=== PATIENT | male | born 1935 | race Caucasian/White ===

== ENCOUNTER 2016-09-19 19:52 | Inpatient (IN) ==
[2016-09-19] MEDS ORDERED: *HR* HYDROcodone/Acet 5/325 mg TABLET PO PRN ×2 (21:24)
[2016-09-19] MEDS ORDERED: Acetaminophen 325 MG TABLET PO PRN (21:24)
[2016-09-19] MEDS: LevETIRAcetam 250 MG TABLET PO SCH (23:30)
[2016-09-20] MEDS: *HR* Enoxaparin 40 MG/0.4 ML SYRINGE SQ SCH (05:50)
[2016-09-20 05:53] LABS: Basophils # 0.1 K/mcL (0.0-0.2); Basophils % 0.6 %; Eosinophils # 0.4 K/mcL (0.0-0.6); Eosinophils % 4.1 %; Hematocrit 30.7 % (37.5-50.1); Hemoglobin 10.5 g/dL (12.9-16.9); Immature Granulocytes % 0.4 % (0-4); Lymphocytes % 23.9 %; Mean Corpuscular HGB Conc 34.2 g/dL (31.6-35.5); Mean Corpuscular Hemoglobin 30.3 pg (28.0-33.3); Mean Corpuscular Volume 88.7 fL (83.0-100.0); Mean Platelet Volume 10.3 fL (9.4-12.4); Monocytes # 0.8 K/mcL (0.0-1.3); Monocytes % 9.6 %; Neutrophils # 5.2 K/mcL (1.6-8.9); Platelet Count 309 K/mcL (140-400); Red Blood Count 3.46 M/mcL (4.19-5.50); Red Cell Distribution Width 13.6 % (11.5-14.5); Segmented Neutrophils % 61.4 %
[2016-09-20 05:54] LABS: INR 1.2; Prothrombin Time 12.7 Seconds (9.4-12.1)
[2016-09-20 05:57] LABS: Activated Partial Thrombo Time 26.5 Seconds (26.0-36.0)
[2016-09-20 06:05] LABS: BUN/Creatinine Ratio 16 (6-26); Blood Urea Nitrogen 21 mg/dL (8-26); Calcium 8.5 mg/dL (8.6-10.8); Carbon Dioxide 22 mEq/L (19-29); Chloride 108 mEq/L (98-109); Glucose 95 mg/dL (70-99); Osmolality,Calculated 293 (280-300); Potassium 4.3 mEq/L (3.5-4.5); Sodium 140 mEq/L (136-145); eGFR For African Americans > 60 (> 60); eGFR For Non-African Americans 54 (> 60)
[2016-09-20] MEDS: *HR* Glimepiride 4 MG TABLET PO SCH (08:08)
[2016-09-20] MEDS: LevETIRAcetam 250 MG TABLET PO SCH ×2 (08:09→19:58)
[2016-09-20] MEDS: Aspirin 81 MG TAB.CHEW PO SCH (08:09)
--- NOTE | 2016-09-20 13:13 | Internal Med History&Physical ---
Date of Encounter: 09/20/16 Time of Encounter: 13:11 Assessment and Plan (1) CVA (cerebrovascular accident) Current visit: Yes Status: Acute Status post left temporal intracerebral hemorrhage. Most of deficits are speech Qualifiers: CVA mechanism: thrombosis Precerebral and cerebral artery: cerebellar artery Laterality of affected vessel: unspecified Qualified Code(s): I63.349 - Cerebral infarction due to thrombosis of unspecified cerebellar artery Internal Medicine - H&P: HPI Admitted From: Intrahospital Transfer Plans for Post Hospital Care: Home History of present illness: Mr. Lawton is a 81 year old male admitted to this facility status post acute subdural left temporal hemorrhage. Patient initially presented with a headache , nausea vomiting and right facial droop for 2 days. He was incoherent. On today's examination he has no specific complaint. Past Med Surg Social Fam HX - Past Medical History Medical history: arthritis, atrial fibrillation, cancer, CHF, CVA, diabetes, hypertension, other Psychiatric history: no psych history - Past Surgical History Surgical History: cholecystectomy, knee replacement, orthopedic, other, prostatectomy, other - Social History Smoking Status: Never smoker Smokeless Tobacco Status: No Alcohol use: none Drug use: none - Family History Mother History Unknown: Yes Father History Unknown: Yes Internal Medicine - H&P: Meds Allopurinol [Zyloprim] 100 mg PO QAM 06/06/15 [History] Aspirin 81 mg PO QAM 06/06/15 [History] Amlodipine [Norvasc] 10 mg PO QAM #90 tablet 06/09/15 [Rx] Tamsulosin [Flomax] 0.4 mg PO DAILY #30 capsule 06/09/15 [Rx] Acetaminophen [Tylenol] 650 mg PO Q6HR PRN 09/19/16 [History] Atorvastatin [Lipitor] 40 mg PO HS 09/19/16 [History] Docusate [Colace] 100 mg PO BID 09/19/16 [History] Enoxaparin [Lovenox] 40 mg SQ DAILY 09/19/16 [History] Glimepiride [Amaryl] 4 mg PO DAILY 09/19/16 [History] HYDROcodone/Acet 5/325 mg [[place] 5-325 mg] 1 tab PO Q4H PRN 09/19/16 [History] HYDROcodone/Acet 5/325 mg [[place] 5-325 mg] 2 tab PO Q4H PRN 09/19/16 [History] LevETIRAcetam [Keppra] 500 mg PO BID 09/19/16 [History] Metoprolol [Lopressor] 25 mg PO BID 09/19/16 [History] Allergies Sulfa (Sulfonamide Antibiotics) Allergy (Verified 06/06/15 17:31) Rash morphine Adverse Reaction (Verified 06/06/15 17:31) Vomiting All Systems PM: A 10-system review of systems was performed and is negative for pertinent findings except as documented above in the HPI. - Cardiovascular Cardiovascular ROS IM: no chest pain, no diaphoresis, no dyspnea, no lightheadedness, no palpitations, no syncope - Respiratory Respiratory: no cough, no dyspnea, no wheezing, no excessive phlegm production - Gastrointestinal Gastrointestinal: no abdominal pain, no diarrhea, no hematemesis, no hematochezia, no melena, no nausea, no vomiting - Musculoskeletal Musculoskeletal ROS IM: no numbness, no tingling - Neurological Neurological ROS: no confusion, no convulsions, no focal weakness, no numbness, no tingling, no tremor(s) - Constitutional Vitals: Temp Pulse Resp BP Pulse Ox 97.4 F L 100 18 136/79 97 09/20/16 06:43 09/20/16 06:43 09/20/16 06:43 09/20/16 06:43 09/20/16 06:43 General appearance: Present: A&O X 3, pleasant - Respiratory Respiratory exam: Present: CTAB. Absent: accessory muscle use, rales, rhonchi, wheezes - Cardiovascular Cardiovascular exam: Present: RRR, +S1, +S2. Absent: diastolic murmur, gallop, rubs, systolic murmur - GI/Abdominal GI/Abdominal exam: Present: normal bowel sounds, soft, no peritoneal signs. Absent: distended, tenderness - Extremities Exam Extremities exam: Present: warm, radial pulses palpable and symetrical. Absent : calf tenderness, cyanotic, pedal edema - Expanded Neurological Exam Speech: Present: anomia (Speech pattern appears to be word salad) Internal Med - H&P Results - Labs CBC & Chem 7: 09/20/16 04:45 09/20/16 04:45 Labs: Short CBC 09/20/16 Range/Units 04:45 WBC 8.5 (4.3-11.1) K/mcL Hgb 10.5 L (12.9-16.9) g/dL Hct 30.7 L (37.5-50.1) % Plt Count 309 (140-400) K/mcL Neutrophils # 5.2 (1.6-8.9) K/mcL BMP 09/20/16 04:45 Sodium 140 Potassium 4.3 Chloride 108 Carbon Dioxide 22 BUN 21 Creatinine 1.28 H Glucose 95 Calcium 8.5 L
[2016-09-21] MEDS: *HR* Enoxaparin 40 MG/0.4 ML SYRINGE SQ SCH (05:43)
[2016-09-21] MEDS: Aspirin 81 MG TAB.CHEW PO SCH (09:15)
[2016-09-21] MEDS: *HR* Glimepiride 4 MG TABLET PO SCH (09:15)
[2016-09-21] MEDS: LevETIRAcetam 250 MG TABLET PO SCH ×2 (09:15→20:57)
--- NOTE | 2016-09-21 10:29 | Internal Med Progress Note ---
Date of Encounter: 09/21/16 Time of Encounter: 10:28 - Assessment and plan (1) CVA (cerebrovascular accident) Current Visit: Yes Status: Acute Assessment and plan: More Calmer[place] today. 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 Seems calm her today. Cooperative. Pleasant but still rambles on with word salad. Still confused. - Constitutional Vitals: Temp Pulse Resp BP Pulse Ox 97.3 F L 76 18 142/75 95 09/21/16 07:25 09/21/16 07:25 09/21/16 07:25 09/21/16 07:25 09/21/16 07:25 General appearance: Present: pleasant - Respiratory Respiratory exam: Present: CTAB. Absent: accessory muscle use, rales, rhonchi, wheezes - Cardiovascular Cardiovascular exam: Present: RRR, +S1, +S2. Absent: diastolic murmur, gallop, rubs, systolic murmur - GI/Abdominal GI/Abdominal exam: Present: normal bowel sounds, soft, no peritoneal signs. Absent: distended, tenderness - Extremities Exam Extremities exam: Present: warm, radial pulses palpable and symetrical. Absent : calf tenderness, cyanotic, pedal edema Internal Medicine: Result - Labs CBC & Chem 7: 09/20/16 04:45 09/20/16 04:45 - ABG Interpretation ABG results: PT/INR, D-dimer PT 12.7 Seconds (9.4-12.1) H 09/20/16 04:45 Consult Discharge Plan - Plan Referrals: Kelvin Savage MD [Primary Care Provider] -
[2016-09-22] MEDS: *HR* Enoxaparin 40 MG/0.4 ML SYRINGE SQ SCH (06:11)
[2016-09-22 06:20] LABS: Basophils # 0.1 K/mcL (0.0-0.2); Basophils % 0.6 %; Eosinophils # 0.3 K/mcL (0.0-0.6); Eosinophils % 2.7 %; Hematocrit 32.3 % (37.5-50.1); Hemoglobin 11.1 g/dL (12.9-16.9); Immature Granulocytes % 0.3 % (0-4); Lymphocytes # 2.3 K/mcL (0.6-4.6); Mean Corpuscular HGB Conc 34.4 g/dL (31.6-35.5); Mean Corpuscular Hemoglobin 29.8 pg (28.0-33.3); Mean Corpuscular Volume 86.8 fL (83.0-100.0); Monocytes % 10.8 %; Neutrophils # 5.9 K/mcL (1.6-8.9); Platelet Count 343 K/mcL (140-400); Red Blood Count 3.72 M/mcL (4.19-5.50); Red Cell Distribution Width 13.4 % (11.5-14.5); Segmented Neutrophils % 61.6 %
[2016-09-22 06:29] LABS: BUN/Creatinine Ratio 15 (6-26); Blood Urea Nitrogen 19 mg/dL (8-26); Calcium 8.7 mg/dL (8.6-10.8); Carbon Dioxide 21 mEq/L (19-29); Chloride 107 mEq/L (98-109); Glucose 94 mg/dL (70-99); Osmolality,Calculated 288 (280-300); Potassium 4.3 mEq/L (3.5-4.5); Sodium 138 mEq/L (136-145); eGFR For African Americans > 60 (> 60); eGFR For Non-African Americans 53 (> 60)
[2016-09-22] MEDS: LevETIRAcetam 250 MG TABLET PO SCH ×2 (09:04→19:48)
[2016-09-22] MEDS: *HR* Glimepiride 4 MG TABLET PO SCH (09:04)
[2016-09-22] MEDS: Aspirin 81 MG TAB.CHEW PO SCH (09:04)
--- NOTE | 2016-09-22 13:53 | Internal Med Progress Note ---
Date of Encounter: 09/25/16 Time of Encounter: 13:51 - Assessment and plan (1) CVA (cerebrovascular accident due to intracerebral hemorrhage) Current Visit: Yes Status: Acute Assessment and plan: Patient is being monitored. As I said physically doing well cognitively is a different story Qualifiers: Intracerebral hemorrhage etiology: traumatic Encounter type: subsequent encounter Laterality: left Loss of consciousness presence/duration: with LOC of unspecified duration Qualified Code(s): S06.359D - Traumatic hemorrhage of left cerebrum with loss of consciousness of unspecified duration, subsequent encounter (2) Accelerated essential hypertension Current Visit: No Status: Acute Assessment and plan: Will follow blood pressure (3) Acute renal failure Current Visit: No Status: Acute Assessment and plan: Will follow renal function also renal function looks good on lab. Qualifiers: Acute renal failure type: unspecified Qualified Code(s): N17.9 - Acute kidney failure, unspecified - Time Spent With Patient less than 15 minutes - Subjective Interval history: Physically patient showing improvement from concerned little bit about cognitive side. A vascular cyanosis due to talk to him and let me know what she thinks in terms of his memory and cognitive abilities - Constitutional Vitals: Temp Pulse Resp BP Pulse Ox 97.9 F 89 16 150/89 94 L 09/22/16 07:00 09/22/16 07:00 09/22/16 07:00 09/22/16 07:00 09/22/16 07:00 General appearance: Present: pleasant - Head Head exam: Present: normal inspection - Neck Neck exam general surgery: Present: supple, trachea midline. Absent: lymphadenopathy - Respiratory Respiratory exam: Present: CTAB. Absent: accessory muscle use, rales, rhonchi, wheezes - Cardiovascular Cardiovascular exam: Present: RRR, +S1, +S2. Absent: diastolic murmur, gallop, rubs, systolic murmur - GI/Abdominal GI/Abdominal exam: Present: normal bowel sounds, soft, no peritoneal signs. Absent: distended, tenderness Internal Medicine: Result - Labs CBC & Chem 7: 09/22/16 05:40 09/22/16 05:40 Labs: Short CBC 09/22/16 Range/Units 05:40 WBC 9.6 (4.3-11.1) K/mcL Hgb 11.1 L (12.9-16.9) g/dL Hct 32.3 L (37.5-50.1) % Plt Count 343 (140-400) K/mcL Neutrophils # 5.9 (1.6-8.9) K/mcL BMP 09/22/16 05:40 Sodium 138 Potassium 4.3 Chloride 107 Carbon Dioxide 21 BUN 19 Creatinine 1.31 H Glucose 94 Calcium 8.7 Lab looks good - ABG Interpretation ABG results: PT/INR, D-dimer PT 12.7 Seconds (9.4-12.1) H 09/20/16 04:45 Consult Discharge Plan - Plan Referrals: Kelvin Savage MD [Primary Care Provider] -
[2016-09-23] MEDS: *HR* Enoxaparin 40 MG/0.4 ML SYRINGE SQ SCH (05:17)
[2016-09-23] MEDS: Aspirin 81 MG TAB.CHEW PO SCH (10:10)
[2016-09-23] MEDS: *HR* Glimepiride 4 MG TABLET PO SCH (10:10)
[2016-09-23] MEDS: LevETIRAcetam 250 MG TABLET PO SCH ×2 (10:10→22:07)
--- NOTE | 2016-09-23 11:21 | Internal Med Progress Note ---
Date of Encounter: 09/23/16 Time of Encounter: 11:19 - Assessment and plan (1) CVA (cerebrovascular accident due to intracerebral hemorrhage) Current Visit: Yes Status: Acute Assessment and plan: I am not sure what his cognitive side was like prior to his CVA. Intracerebral hemorrhage. He appears to be stable but nonsensical and nonspecific in his speech Qualifiers: Intracerebral hemorrhage etiology: traumatic Encounter type: subsequent encounter Laterality: left Loss of consciousness presence/duration: with LOC of unspecified duration Qualified Code(s): S06.359D - Traumatic hemorrhage of left cerebrum with loss of consciousness of unspecified duration, subsequent encounter (2) Accelerated essential hypertension Current Visit: No Status: Acute Assessment and plan: Blood pressure is great (3) Acute renal failure Current Visit: No Status: Acute Assessment and plan: Renal function looks good Qualifiers: Acute renal failure type: unspecified Qualified Code(s): N17.9 - Acute kidney failure, unspecified - Time Spent With Patient less than 15 minutes - Subjective Interval history: Patient makes no sense in conversations. Is pleasant and denies any discomfort. - Constitutional Vitals: Temp Pulse Resp BP Pulse Ox 98.2 F 80 18 122/75 96 09/23/16 07:00 09/23/16 07:00 09/23/16 07:00 09/23/16 07:00 09/23/16 07:00 General appearance: Present: pleasant - Head Head exam: Present: atraumatic, normal inspection, normocephalic - Neck Neck exam general surgery: Present: supple, trachea midline. Absent: lymphadenopathy - Respiratory Respiratory exam: Present: CTAB. Absent: accessory muscle use, rales, rhonchi, wheezes - Cardiovascular Cardiovascular exam: Present: RRR, +S1, +S2. Absent: diastolic murmur, gallop, rubs, systolic murmur - GI/Abdominal GI/Abdominal exam: Present: normal bowel sounds, soft, no peritoneal signs. Absent: distended, tenderness Internal Medicine: Result - Labs CBC & Chem 7: 09/22/16 05:40 09/22/16 05:40 Labs: Lab looks good - ABG Interpretation ABG results: PT/INR, D-dimer PT 12.7 Seconds (9.4-12.1) H 09/20/16 04:45 Consult Discharge Plan - Plan Referrals: Kelvin Savage MD [Primary Care Provider] -
[2016-09-24] MEDS: *HR* Enoxaparin 40 MG/0.4 ML SYRINGE SQ SCH (03:40)
[2016-09-24] MEDS: LevETIRAcetam 250 MG TABLET PO SCH ×2 (09:04→21:09)
[2016-09-24] MEDS: Aspirin 81 MG TAB.CHEW PO SCH (09:04)
[2016-09-24] MEDS: *HR* Glimepiride 4 MG TABLET PO SCH (09:05)
--- NOTE | 2016-09-24 13:26 | Internal Med Progress Note ---
Date of Encounter: 09/24/16 Time of Encounter: 13:24 - Assessment and plan (1) CVA (cerebrovascular accident due to intracerebral hemorrhage) Current Visit: Yes Status: Acute Assessment and plan: Patient has significant dysphagia secondary to his CVA appears Qualifiers: Intracerebral hemorrhage etiology: traumatic Encounter type: subsequent encounter Laterality: left Loss of consciousness presence/duration: with LOC of unspecified duration Qualified Code(s): S06.359D - Traumatic hemorrhage of left cerebrum with loss of consciousness of unspecified duration, subsequent encounter (2) Accelerated essential hypertension Current Visit: No Status: Acute Assessment and plan: Patient's blood pressures well controlled (3) Acute renal failure Current Visit: No Status: Acute Assessment and plan: Acute renal failure stable Qualifiers: Acute renal failure type: unspecified Qualified Code(s): N17.9 - Acute kidney failure, unspecified - Time Spent With Patient less than 15 minutes - Subjective Interval history: Patient makes no sense in conversations. Is pleasant and denies any discomfort. Patient does have dysphasia. It is impossible to follow his conversation. As a great deal of trouble word finding - Constitutional Vitals: Temp Pulse Resp BP Pulse Ox 98.9 F 79 18 110/69 96 09/24/16 06:43 09/24/16 06:43 09/24/16 06:43 09/24/16 06:43 09/24/16 06:43 General appearance: Present: pleasant - Head Head exam: Present: atraumatic, normal inspection, normocephalic - Neck Neck exam general surgery: Present: supple, trachea midline. Absent: lymphadenopathy - Respiratory Respiratory exam: Present: CTAB. Absent: accessory muscle use, rales, rhonchi, wheezes - Cardiovascular Cardiovascular exam: Present: RRR, +S1, +S2. Absent: diastolic murmur, gallop, rubs, systolic murmur - GI/Abdominal GI/Abdominal exam: Present: normal bowel sounds, soft, no peritoneal signs. Absent: distended, tenderness Internal Medicine: Result - Labs CBC & Chem 7: 09/22/16 05:40 09/22/16 05:40 Labs: Lab looks okay k - ABG Interpretation ABG results: PT/INR, D-dimer PT 12.7 Seconds (9.4-12.1) H 09/20/16 04:45 Consult Discharge Plan - Plan Referrals: Kelvin Savage MD [Primary Care Provider] -
--- NOTE | 2016-09-24 14:00 | Psychological Evaluation ---
Date of Encounter: 09/24/16 Time of Encounter: 11:00 History of Present Illness History of present illness: Mr. Lawton is a 81 year old male who recently sustained a left temporal hemorrhage and was admitted to [facility] for inpatient rehab. He was seen on this date to assess his current cognitive and emotional functioning. Past Medical History Medical history: Significant for arthritis, atrial fibrillation, cancer, diabetes and HTN - Psychiatric History Additional Psychiatric History: No known history of psychiatric hospitalization or mental health counseling. In addition, there is no known family history of psychiatric or mental health issues. Home Medications and Allergies Allopurinol [Zyloprim] 100 mg PO QAM 06/06/15 [History] Aspirin 81 mg PO QAM 06/06/15 [History] Amlodipine [Norvasc] 10 mg PO QAM #90 tablet 06/09/15 [Rx] Tamsulosin [Flomax] 0.4 mg PO DAILY #30 capsule 06/09/15 [Rx] Acetaminophen [Tylenol] 650 mg PO Q6HR PRN 09/19/16 [History] Atorvastatin [Lipitor] 40 mg PO HS 09/19/16 [History] Docusate [Colace] 100 mg PO BID 09/19/16 [History] Enoxaparin [Lovenox] 40 mg SQ DAILY 09/19/16 [History] Glimepiride [Amaryl] 4 mg PO DAILY 09/19/16 [History] HYDROcodone/Acet 5/325 mg [[place] 5-325 mg] 1 tab PO Q4H PRN 09/19/16 [History] HYDROcodone/Acet 5/325 mg [[place] 5-325 mg] 2 tab PO Q4H PRN 09/19/16 [History] LevETIRAcetam [Keppra] 500 mg PO BID 09/19/16 [History] Metoprolol [Lopressor] 25 mg PO BID 09/19/16 [History] Allergies Sulfa (Sulfonamide Antibiotics) Allergy (Verified 06/06/15 17:31) Rash morphine Adverse Reaction (Verified 06/06/15 17:31) Vomiting Social History - Social History Social History: Mr. Lawton is and has two children. His expressive aphasia limited his ability to provide background information or his psychosocial history. He was able to indicate that he has a son and a daughter and photos in his hospital room also showed a grandson (who is a java mobile developer) and a granddaugher. Mr. Lawton is retired but was unable to specify what kind of work he had done and he was unable to explain previous daily routine or hobbies. 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 - Tobacco Use Smoking Status: Never smoker - Alcohol Use Alcohol Use: none Cognitive/Emotional Assessment - Cognitive Ability Additional Findings: Mr. Bejarano was alert, attentive and fully cooperative. He was able to state his full name and point to his correct age from 3 written choices but was unable identify the date/time or present location/place. Mr. Lawton was fairly verbose and did not appear aware that his speech was void of content. Speech was fluent and clear. He tended to answer questions in vague words and was often unable to answer questions with a concise or accurate response. He tended to perseverate on money, Luis A, hospital expenses, people stealing and being given medicines or undergoing medical procedures. He was unable to repeat words or phrases and he was unable to complete one-step commands even with gestures/ modeling of response. Overall, level of verbal comprehension is significantly impaired and Mr. Lawton did not appear aware of his language deficits. - Emotional Status Additional Findings: Mr. Lawton was pleasant and friendly. He did not exhibit signs of frustration, irritability, anxiety or sadness. In addition, he did not appear to be in any physical discomfort or pain. Assessment & Plan - Treatment Plan Treatment Plan/Recommendations: Will follow Mr. Lawton as needed while he is an inpatient on the unit. Will monitor his mood for signs of irritability, depression/anxiety and increased awareness. Procedures - Session Time Session Start Time: 11:00 Session Stop Time: 11:30
--- NOTE | 2016-09-24 15:48 | Physcial Medicine-Consult Note ---
Date of Encounter: 09/24/16 Time of Encounter: 15:41 Physical Medicine - AP (1) CVA (cerebrovascular accident due to intracerebral hemorrhage) Status: Acute Assessment and plan: 1. Mr. Lawton will continue with intensive PT/OT/ST/TR to continue to address ADLs, gait, safety, and speech. He is currently min A for bathing, requires CGA for lower body dressing. He is ambulating 100 feet with assistance. His global aphasia is his primary deficit at this time. We will continue with intensive speech therapy. 2. DVT prophylaxis: Continue lovenox 3. A-fib: continue beta fede and aspirin. Code(s): I61.9 - Nontraumatic intracerebral hemorrhage, unspecified SNOMED Code(s): 017729280 (2) Global aphasia Status: Acute Code(s): R47.02 - Dysphasia SNOMED Code(s): 94833085 Physical Medicine - HPI - Data of Consult Consult date: 09/24/16 Requesting Physician: Kali Ledesma DO Primary Care Provider: Kelvin Savage MD - Consult Narrative Reason for consult: CVA History of present illness: Mr. Lawton is a 81 year old male who was admitted for inpatient rehabilitation following a large left temporal lobe parenchymal hematoma. 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 The AVM was partially embolized. Patient developed atrial fibrillation during his acute stay. Patient was started on metoprolol and aspirin. He was stabilized and transferred for inpatient rehabilitation due to his residual deficits which include global aphasia. CC: Kali Ledesma DO Past Med Surg Social Fam HX - Past Medical History Medical history: arthritis, atrial fibrillation, cancer, CHF, CVA, diabetes, hypertension, other Psychiatric history: no psych history - Past Surgical History Surgical History: cholecystectomy, knee replacement, orthopedic, other, prostatectomy, other - Social History Smoking Status: Never smoker Smokeless Tobacco Status: No Alcohol use: none Drug use: none - Family History Mother History Unknown: Yes Father History Unknown: Yes Medications and Allergies Allopurinol [Zyloprim] 100 mg PO QAM 06/06/15 [History] Aspirin 81 mg PO QAM 06/06/15 [History] Amlodipine [Norvasc] 10 mg PO QAM #90 tablet 06/09/15 [Rx] Tamsulosin [Flomax] 0.4 mg PO DAILY #30 capsule 06/09/15 [Rx] Acetaminophen [Tylenol] 650 mg PO Q6HR PRN 09/19/16 [History] Atorvastatin [Lipitor] 40 mg PO HS 09/19/16 [History] Docusate [Colace] 100 mg PO BID 09/19/16 [History] Enoxaparin [Lovenox] 40 mg SQ DAILY 09/19/16 [History] Glimepiride [Amaryl] 4 mg PO DAILY 09/19/16 [History] HYDROcodone/Acet 5/325 mg [[place] 5-325 mg] 1 tab PO Q4H PRN 09/19/16 [History] HYDROcodone/Acet 5/325 mg [[place] 5-325 mg] 2 tab PO Q4H PRN 09/19/16 [History] LevETIRAcetam [Keppra] 500 mg PO BID 09/19/16 [History] Metoprolol [Lopressor] 25 mg PO BID 09/19/16 [History] Allergies Sulfa (Sulfonamide Antibiotics) Allergy (Verified 06/06/15 17:31) Rash morphine Adverse Reaction (Verified 06/06/15 17:31) Vomiting ROS unobtainable: due to mental status Physical Medicine - Exam - Constitutional Vitals: Temp Pulse Resp BP Pulse Ox 98.9 F 79 18 110/69 96 09/24/16 06:43 09/24/16 06:43 09/24/16 06:43 09/24/16 06:43 09/24/16 06:43 General appearance: no acute distress Exam: Patient is alert. Fluent speech. Able to respond accurately when asked his name. He is unable to name objects or people. Nonsensical responses to questions.Patient is pleasant, alert, seated in chair. - Head Head exam: Present: normal inspection, normocephalic Additional comments: No facial droop. Tongue is midline. EOMI grossly intact. Exam limited due to patient's global aphasia - Respiratory Respiratory exam: Present: CTAB - Cardiovascular Cardiovascular exam: Present: RRR - GI/Abdominal GI/Abdominal exam: Present: normal bowel sounds, soft. Absent: tenderness - Extremities Exam Extremities exam: Absent: calf tenderness, tenderness Additional comments: Reflexes are absent symmetrically in the bilateral upper and lower limbs. Motor strength testing is grossly 5/5. Physical Medicine - Results - Labs CBC & Chem 7: 09/22/16 05:40 09/22/16 05:40 Consult Discharge Plan - Plan Referrals: Kelvin Savage MD [Primary Care Provider] -
[2016-09-25] MEDS: *HR* Enoxaparin 40 MG/0.4 ML SYRINGE SQ SCH (03:48)
[2016-09-25] MEDS: Aspirin 81 MG TAB.CHEW PO SCH (08:41)
[2016-09-25] MEDS: *HR* Glimepiride 4 MG TABLET PO SCH (08:42)
[2016-09-25] MEDS: LevETIRAcetam 250 MG TABLET PO SCH ×2 (08:42→20:39)
--- NOTE | 2016-09-25 13:46 | Internal Med Progress Note ---
Date of Encounter: 09/26/16 Time of Encounter: 14:00 - Assessment and plan (1) CVA (cerebrovascular accident due to intracerebral hemorrhage) Current Visit: Yes Status: Acute Assessment and plan: Patient's here for rehabilitation status post CVA Qualifiers: Intracerebral hemorrhage etiology: traumatic Encounter type: subsequent encounter Laterality: left Loss of consciousness presence/duration: with LOC of unspecified duration Qualified Code(s): S06.359D - Traumatic hemorrhage of left cerebrum with loss of consciousness of unspecified duration, subsequent encounter (2) Accelerated essential hypertension Current Visit: No Status: Acute Assessment and plan: Pressure stable (3) Acute renal failure Current Visit: No Status: Acute Assessment and plan: Renal failure is improved Qualifiers: Acute renal failure type: unspecified Qualified Code(s): N17.9 - Acute kidney failure, unspecified - Time Spent With Patient less than 15 minutes - Subjective Interval history: Physically patient showing improvement from concerned little bit about cognitive side.staff psychologist to see t today. - Constitutional Vitals: Temp Pulse Resp BP Pulse Ox 98.0 F 80 16 134/79 95 09/25/16 07:00 09/25/16 07:00 09/25/16 07:00 09/25/16 07:00 09/25/16 07:00 General appearance: Present: pleasant - Head Head exam: Present: atraumatic, normal inspection, normocephalic - Neck Neck exam general surgery: Present: supple, trachea midline. Absent: lymphadenopathy - Respiratory Respiratory exam: Present: CTAB. Absent: accessory muscle use, rales, rhonchi, wheezes - Cardiovascular Cardiovascular exam: Present: RRR, +S1, +S2. Absent: diastolic murmur, gallop, rubs, systolic murmur Internal Medicine: Result - Labs CBC & Chem 7: 09/22/16 05:40 09/22/16 05:40 Labs: Lab is stable - ABG Interpretation ABG results: PT/INR, D-dimer PT 12.7 Seconds (9.4-12.1) H 09/20/16 04:45 Consult Discharge Plan - Plan Instructions: Hemorrhagic Stroke (DC) Referrals: Juan Ely MD [Non-Partnered Physician] - 10/22/16 11:00 am Kelvin Savage MD [Primary Care Provider] - 10/06/16 11:00 am
--- NOTE | 2016-09-25 13:49 | Internal Med Progress Note ---
Date of Encounter: 09/25/16 Time of Encounter: 13:47 - Assessment and plan (1) CVA (cerebrovascular accident due to intracerebral hemorrhage) Current Visit: Yes Status: Acute Assessment and plan: Patient has CVA. I think this is obviously caused him to have dysphasia Qualifiers: Intracerebral hemorrhage etiology: traumatic Encounter type: subsequent encounter Laterality: left Loss of consciousness presence/duration: with LOC of unspecified duration Qualified Code(s): S06.359D - Traumatic hemorrhage of left cerebrum with loss of consciousness of unspecified duration, subsequent encounter (2) Accelerated essential hypertension Current Visit: No Status: Acute Assessment and plan: Currently blood pressure is well-controlled (3) Acute renal failure Current Visit: No Status: Acute Assessment and plan: Patient's acute renal failure has improved Qualifiers: Acute renal failure type: unspecified Qualified Code(s): N17.9 - Acute kidney failure, unspecified - Subjective Interval history: Patient occasionally has a code fall. He is currently not specific in discussing things spontaneously all over the place. Rather like this dictation - Constitutional Vitals: Temp Pulse Resp BP Pulse Ox 98.0 F 80 16 134/79 95 09/25/16 07:00 09/25/16 07:00 09/25/16 07:00 09/25/16 07:00 09/25/16 07:00 General appearance: Present: pleasant - Head Head exam: Present: atraumatic, normocephalic - Neck Neck exam general surgery: Present: supple, trachea midline. Absent: lymphadenopathy - Respiratory Respiratory exam: Present: CTAB. Absent: accessory muscle use, rales, rhonchi, wheezes - Cardiovascular Cardiovascular exam: Present: RRR, +S1, +S2. Absent: diastolic murmur, gallop, rubs, systolic murmur - GI/Abdominal GI/Abdominal exam: Present: normal bowel sounds, soft, no peritoneal signs. Absent: distended, tenderness Internal Medicine: Result - Labs CBC & Chem 7: 09/22/16 05:40 09/22/16 05:40 - ABG Interpretation ABG results: PT/INR, D-dimer PT 12.7 Seconds (9.4-12.1) H 09/20/16 04:45 Consult Discharge Plan - Plan Referrals: Kelvin Savage MD [Primary Care Provider] -
[2016-09-26] MEDS: *HR* Enoxaparin 40 MG/0.4 ML SYRINGE SQ SCH (05:49)
[2016-09-26 07:04] VITALS: BP 145/85
[2016-09-26] MEDS: *HR* Glimepiride 4 MG TABLET PO SCH (08:02)
[2016-09-26] MEDS: LevETIRAcetam 250 MG TABLET PO SCH (08:02)
[2016-09-26] MEDS: Aspirin 81 MG TAB.CHEW PO SCH (08:02)
--- NOTE | 2016-09-26 13:01 | Discharge Summary ---
Date of Encounter: 09/26/16 Time of Encounter: 14:00 - Discharge Diagnosis (1) CVA (cerebrovascular accident due to intracerebral hemorrhage) Priority: Primary Status: Acute Comments: Patient suffered a CVA and physically seems to be fairly stable but cognitively he is very dysphasic Qualifiers: Intracerebral hemorrhage etiology: traumatic Encounter type: subsequent encounter Laterality: left Loss of consciousness presence/duration: with LOC of unspecified duration Qualified Code(s): S06.359D - Traumatic hemorrhage of left cerebrum with loss of consciousness of unspecified duration, subsequent encounter (2) Accelerated essential hypertension Priority: Secondary Status: Acute (3) Acute renal failure Priority: Secondary Status: Acute Qualifiers: Acute renal failure type: unspecified Qualified Code(s): N17.9 - Acute kidney failure, unspecified - Discharge Medications Home Medications: Allopurinol [Zyloprim] 100 mg PO QAM 06/06/15 [History] Aspirin 81 mg PO QAM 06/06/15 [History] Amlodipine [Norvasc] 10 mg PO QAM #90 tablet 06/09/15 [Rx] Tamsulosin [Flomax] 0.4 mg PO DAILY #30 capsule 06/09/15 [Rx] Acetaminophen [Tylenol] 650 mg PO Q6HR PRN 09/19/16 [History] Atorvastatin [Lipitor] 40 mg PO HS 09/19/16 [History] Docusate [Colace] 100 mg PO BID 09/19/16 [History] Enoxaparin [Lovenox] 40 mg SQ DAILY 09/19/16 [History] Glimepiride [Amaryl] 4 mg PO DAILY 09/19/16 [History] HYDROcodone/Acet 5/325 mg [[place] 5-325 mg] 1 tab PO Q4H PRN 09/19/16 [History] HYDROcodone/Acet 5/325 mg [[place] 5-325 mg] 2 tab PO Q4H PRN 09/19/16 [History] LevETIRAcetam [Keppra] 500 mg PO BID 09/19/16 [History] Metoprolol [Lopressor] 25 mg PO BID 09/19/16 [History] Allergies/Adverse Reactions: Allergies Sulfa (Sulfonamide Antibiotics) Allergy (Verified 06/06/15 17:31) Rash morphine Adverse Reaction (Verified 06/06/15 17:31) Vomiting Date of admission: 09/19/16 19:52 Primary care physician: Kelvin Savage MD Consults: 09/19/16 21:28 Consult to Occupational Therapy [CONS] Routine Comment: eval/tx Consult to Physical Therapy [CONS] Routine Comment: eval/tx Consult to Recreational Therapy [CONS] Routine Comment: Consult to Swim Coach [CONS] Routine Reason for SW Consult: d/c planning 09/19/16 21:30 Consult to Speech Therapy [CONS] Routine Comment: Evaluate, develop and implement POC Reason for Consult: eval/tx, s/p CVA Call Completed: No 09/20/16 00:25 Consult to Psychology [CONS] Routine Consulting Provider: Tracy Rajput Reason for Consult: CVA Call Completed: No Discharging clinician: Kali Ledesma Anticipated date of discharge: 09/26/16 - Patient Status Disposition: Home, Self-Care Condition: Fair Functional capacity at discharge: independent ambulation Overall status at discharge: patient is progressing back to baseline - Discharge Instructions Instructions: Hemorrhagic Stroke (DC) Follow Up With: Juan Ely MD [Non-Partnered Physician] - 10/22/16 11:00 am Kelvin Savage MD [Primary Care Provider] - 10/06/16 11:00 am - Diet and Activity Activity: increase activity as tolerated Interval History: She was sent here after CVA. Hospital course: Mr. Lawton is a 81 year old male Mom is been working with therapy for the last week after suffering a CVA. Physically doing well he is just dysphasic and hard to follow - Time Spent with Patient Total time spent providing and/or coordinating discharge services: Less than 30 minutes - Constitutional Vitals: Temp Pulse Resp BP Pulse Ox 98.6 F 75 16 145/85 97 09/26/16 07:00 09/26/16 07:00 09/26/16 07:00 09/26/16 07:00 09/26/16 07:00 General appearance: Present: pleasant - Head Head exam: Present: atraumatic, normal inspection, normocephalic - Neck Neck exam general surgery: Present: supple, trachea midline. Absent: lymphadenopathy - Respiratory Respiratory exam: Present: CTAB. Absent: accessory muscle use, rales, rhonchi, wheezes - Cardiovascular Cardiovascular exam: Present: RRR, +S1, +S2. Absent: diastolic murmur, gallop, rubs, systolic murmur
[2016-10-19] MEDS ORDERED: Lisinopril 20 MG TABLET PO SCH (09:00)
== END 2016-09-26 14:45 | disposition home or self-care (01) | DRG 56 ==
LOC: INPGRE 19:52
PROVIDERS: ADMIT Internal Medicine; ATTEND Internal Medicine

== ENCOUNTER 2017-04-27 11:55 | Observation (INO) ==
--- NOTE | 2017-04-27 12:24 | Emergency Department Note ---
Disposition Clinical Impression: Altered mental status Qualifiers: Altered mental status type: unspecified Qualified Code(s): R41.82 - Altered mental status, unspecified Cerebrovascular accident Qualifiers: CVA mechanism: unspecified Qualified Code(s): I63.9 - Cerebral infarction, unspecified Disposition: Admitted As Inpatient Condition: Fair Referrals: Kelvin Savage MD [Primary Care Provider] - Forms: ED Satisfaction Letter Altered Mental Status HPI - General Chief Complaint: ED Shortness of Breath/Dyspnea Stated Complaint: THOM Time Seen by Provider: 04/27/17 12:06 Source: EMS Mode of arrival: EMS Limitations: altered mental status Nursing Notes Reviewed: Yes Vital Signs Reviewed: Yes - History of Present Illness HPI Narrative: 82-year-old male was brought in by EMS for evaluation of decreased mental status. 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 Since that time he has had difficulty with speech but is able to do activities of daily living like feed himself and take care of toiletry issues. The patient gets around by using a wheelchair and his 's assistance. noted last night around 9:30 10:00 that his mental status is unchanged. He had some erratic breathing. She also feels that he has a slight left facial droop that is new. The patient was recently brought home from shelter approximately 2 weeks ago. He is unable to give any history due to his unresponsiveness - Related Data Home Medications Medication Instructions Recorded Confirmed Allopurinol [Zyloprim] 100 mg PO QAM 06/06/15 03/08/17 Aspirin 81 mg PO QAM 06/06/15 03/08/17 Atorvastatin [Lipitor] 40 mg PO HS 09/19/16 03/08/17 Glimepiride [Amaryl] 4 mg PO DAILY 09/19/16 03/08/17 LevETIRAcetam [Keppra] 500 mg PO BID 09/19/16 03/08/17 Metoprolol [Lopressor] 25 mg PO BID 09/19/16 03/08/17 Citalopram [CeleXA] 20 mg PO DAILY 02/03/17 03/08/17 Gabapentin [Neurontin] 100 mg PO TID 02/03/17 03/08/17 risperiDONE [RisperDAL] 1 mg PO DAILY 02/03/17 03/08/17 DULoxetine [Cymbalta] 30 mg PO DAILY 03/08/17 03/08/17 traZODone [TraZODone] 150 mg PO HS 03/08/17 03/08/17 Previous Rx's Medication Instructions Recorded Tamsulosin [Flomax] 0.4 mg PO DAILY #30 capsule 06/09/15 Lisinopril [Zestril] 2.5 mg PO BID #60 tab 03/12/17 predniSONE [PredniSONE] 10 mg PO DAILY #10 tab 03/12/17 Allergies Allergy/AdvReac Type Severity Reaction Status Date / Time Sulfa (Sulfonamide Allergy Rash Verified 06/06/15 17:31 Antibiotics) morphine AdvReac Vomiting Verified 06/06/15 17:31 Review of Systems: Review of systems obtained from the Constitutional: [Negative for fever and chills.] HENT: [Negative for congestion.] Eyes: [Negative for discharge.] Respiratory: Irregular breathing pattern since last night Cardiovascular: [Negative for chest pain.] Gastrointestinal: [Negative for nausea, vomiting, abdominal pain and diarrhea.] Endocrine: [Negative for excessive thirst,urination] Genitourinary: [Negative for dysuria and frequency.] Musculoskeletal: [Negative for myalgias and arthralgias.] Skin: [Negative for rash.] Neurological: see HPI Psychiatric/Behavioral: Unable to be obtained to aphasia All other systems reviewed and are negative. Review of Systems: As Per HPI Limitations: ROS unobtainable due to patients medical condition Past Medical History - Past Medical History Attestation: Yes The following information was validated with the patient. Source: obtained from family Medical history: Reports: arthritis, atrial fibrillation, cancer, CHF, COPD, coronary artery disease, CVA, diabetes, hypertension, other Surgical history: Reports: cholecystectomy, knee replacement, orthopedic, other , prostatectomy, other Psychiatric history: Reports: no psych history - Social History Smoking Status: Never smoker Smokeless Tobacco Status: No Alcohol use: Reports: none Drug use: Reports: none Physical Exam Constitutional: Patient is awake but nonresponsive, elderly, mildly tachypneic . The patient appears symptomatic, chronically ill. HENT: Head: Normocephalic and atraumatic. Right Ear: External ear normal. Left Ear: External ear normal. Nose: Nose normal. Mouth/Throat: Oropharynx is clear and mucous membranes show mild dehydration [] Eyes: Conjunctivae and EOM are normal. [Pupils are equal, round, and reactive to light]. Right eye exhibits no discharge. Left eye exhibits no discharge. Neck: Trachea is midline, normal range of motion and does not speak. Neck supple. Cardiovascular: Irregular irregular rhythm, S1 normal, S2 normal, normal heart sounds and intact distal pulses. Exam reveals no gallop and no friction rub. No murmur heard. Pulmonary/Chest: Effort [normal] No stridor. [No] tachypnea. [No] respiratory distress. There are [no] decreased breath sounds. [There no wheezes, no rhonchi , or rales.] Abdominal: Soft: There exhibits no distension and no mass. There is no hepatosplenomegaly. There is [no] tenderness, [no] CVA tenderness. There is no rigidity, no rebound, no guarding. Musculoskeletal: [Normal range of motion of all unaffected extremities.] [ There exhibits no edema.] [There is no palpable tenderness to extremeties]. Neurological: Patient is awake but does not respond to commands with eyes open. There are no gross motor or sensory deficits, but the exam is limited due to his current mental status [Patient displays no atrophy and no tremor]. [ exhibits normal muscle tone]. Coordination not able to be tested. Babinski's are equivocally downgoing bilaterally Skin: Skin is [warm and dry]. No erythema areas noted. [No rash noted]. Psychiatric: Unable to be assessed due to his current mental status Course Course Narrative: Patient is more awake but still does not follow commands. I discussed the case with Dr. Mcfarlane who agrees with admission and period of observation. The is confirmed that he is a DNR status and does not want any heroic interventions Vital Signs Temperature 98.3 F 04/27/17 11:56 Pulse Rate 90 04/27/17 11:56 Respiratory Rate 24 04/27/17 11:56 Blood Pressure 100/67 04/27/17 11:56 O2 Sat by Pulse Oximetry 100 04/27/17 11:56 Temperature 98.3 F 04/27/17 11:56 Pulse Rate 93 04/27/17 13:40 Respiratory Rate 20 04/27/17 13:40 Blood Pressure 95/69 04/27/17 13:40 O2 Sat by Pulse Oximetry 100 04/27/17 13:40 Oxygen Delivery Oxygen Delivery Non Rebreather Mask Altered Mental Status - Differential Diagnosis Likely: altered mental status. Unlikely: alcoholic intoxication, delirium, dementia, hypoglycemia, hyponatremia, psychiatric disease, subarachnoid hemorrhage, sepsis, substance use - Lab Data Lab results reviewed: Yes I reviewed the patient's lab results. Result diagrams: 04/27/17 12:08 04/27/17 12:08 Lab Results 04/27/17 04/27/17 04/27/17 Range/Units 12:08 12:08 12:08 WBC 10.9 (4.3-11.1) K/mcL RBC 4.10 L (4.19-5.50) M/mcL Hgb 12.9 (12.9-16.9) g/dL Hct 36.4 L (37.5-50.1) % MCV 88.8 (83.0-100.0) fL MCH 31.5 (28.0-33.3) pg MCHC 35.4 (31.6-35.5) g/dL RDW 12.6 (11.5-14.5) % Plt Count 192 (140-400) K/mcL MPV 10.3 (9.4-12.4) fL Immature Gran % 0.4 (0-4) % Seg Neutrophils % 75.4 % Lymphocytes % 14.0 % Monocytes % 8.8 % Eosinophils % 1.2 % Basophils % 0.2 % Neutrophils # 8.2 (1.6-8.9) K/mcL Lymphocytes # 1.5 (0.6-4.6) K/mcL Monocytes # 1.0 (0.0-1.3) K/mcL Eosinophils # 0.1 (0.0-0.6) K/mcL Basophils # 0.0 (0.0-0.2) K/mcL PT 11.8 (9.4-12.1) Seconds INR 1.1 APTT 25.2 L (26.0-36.0) Seconds ABG pH (7.32-7.45) pH Units ABG pCO2 (35-45) mmHg ABG pO2 (85-104) mmHg ABG HCO3 (21-27) mEq/L ABG Total CO2 (20-26) mEq/L ABG O2 Saturation (95-98) % ABG Base Excess (-2.0 to 3.0) mEq/L Liter Flow L/MIN Blood Gas Modality Inspired O2 % Sodium 137 (136-145) mEq/L Potassium 4.5 (3.5-4.5) mEq/L Chloride 101 (98-109) mEq/L Carbon Dioxide 24 (19-29) mEq/L BUN 25 (8-26) mg/dL Creatinine 1.50 H (0.72-1.25) mg/dL Est GFR ( Amer) 55 L (> 60) Est GFR (Non-Af Amer) 45 L (> 60) BUN/Creatinine Ratio 17 (6-26) Glucose 342 H (70-99) mg/dL Calculated Osmolality 302 H (280-300) Calcium 9.2 (8.6-10.8) mg/dL Total Bilirubin 0.9 (0.2-1.2) mg/dL Direct Bilirubin 0.3 (0.0-0.5) mg/dL Indirect Bilirubin 0.6 (0.0-1.2) mg/dL AST 15 (5-34) Units/L ALT 19 (0-55) Units/L Alkaline Phosphatase 76 (38-126) Units/L Troponin I (0-0.03) ng/mL Serum Total Protein 6.8 (6.0-8.3) g/dL Albumin 2.8 L (3.5-5.0) g/dL Globulin 4.0 H (2.4-3.5) g/dL Albumin/Globulin Ratio 0.7 L (1.1-2.2) Ethyl Alcohol < 10 (0-10) mg/dL 04/27/17 04/27/17 Range/Units 12:08 12:35 WBC (4.3-11.1) K/mcL RBC (4.19-5.50) M/mcL Hgb (12.9-16.9) g/dL Hct (37.5-50.1) % MCV (83.0-100.0) fL MCH (28.0-33.3) pg MCHC (31.6-35.5) g/dL RDW (11.5-14.5) % Plt Count (140-400) K/mcL MPV (9.4-12.4) fL Immature Gran % (0-4) % Seg Neutrophils % % Lymphocytes % % Monocytes % % Eosinophils % % Basophils % % Neutrophils # (1.6-8.9) K/mcL Lymphocytes # (0.6-4.6) K/mcL Monocytes # (0.0-1.3) K/mcL Eosinophils # (0.0-0.6) K/mcL Basophils # (0.0-0.2) K/mcL PT (9.4-12.1) Seconds INR APTT (26.0-36.0) Seconds ABG pH 7.43 (7.32-7.45) pH Units ABG pCO2 41 (35-45) mmHg ABG pO2 116 H (85-104) mmHg ABG HCO3 27 (21-27) mEq/L ABG Total CO2 28 H (20-26) mEq/L ABG O2 Saturation 99 H (95-98) % ABG Base Excess 2.4 (-2.0 to 3.0) mEq/L Liter Flow 10 L/MIN Blood Gas Modality NRB Inspired O2 60.0 % Sodium (136-145) mEq/L Potassium (3.5-4.5) mEq/L Chloride (98-109) mEq/L Carbon Dioxide (19-29) mEq/L BUN (8-26) mg/dL Creatinine (0.72-1.25) mg/dL Est GFR ( Amer) (> 60) Est GFR (Non-Af Amer) (> 60) BUN/Creatinine Ratio (6-26) Glucose (70-99) mg/dL Calculated Osmolality (280-300) Calcium (8.6-10.8) mg/dL Total Bilirubin (0.2-1.2) mg/dL Direct Bilirubin (0.0-0.5) mg/dL Indirect Bilirubin (0.0-1.2) mg/dL AST (5-34) Units/L ALT (0-55) Units/L Alkaline Phosphatase (38-126) Units/L Troponin I 0.01 (0-0.03) ng/mL Serum Total Protein (6.0-8.3) g/dL Albumin (3.5-5.0) g/dL Globulin (2.4-3.5) g/dL Albumin/Globulin Ratio (1.1-2.2) Ethyl Alcohol (0-10) mg/dL - Radiology Data Radiology results reviewed: Yes I reviewed the patient's radiology results. FINDINGS: BRAIN/VENTRICLES: There is no acute intracranial hemorrhage, mass effect or midline shift. No abnormal extra-axial fluid collection. Remote insult is again seen within the left temporal lobe with associated encephalomalacia. Moderate periventricular white matter hypodensities are again seen, overall similar in appearance. There is mild atrophy. The mckeon-white differentiation is maintained without evidence of an acute infarct. There is no evidence of hydrocephalus. There has been no significant change in brain parenchyma compared to prior. ORBITS: The visualized portion of the orbits demonstrate no acute abnormality. SINUSES: The visualized paranasal sinuses and mastoid air cells demonstrate no acute abnormality. SOFT TISSUES/SKULL: No acute abnormality of the visualized skull or soft tissues. CT/CT head/brain wo con IMPRESSION: No evidence of intracranial hemorrhage or mass effect. Moderate chronic white matter changes and remote left temporal infarct, overall similar in appearance. No significant change compared to prior CT. The degree of white matter disease slightly limits evaluation for subtle acute infarct. FINDINGS: The lungs are without acute focal process. There is no effusion or pneumothorax. The cardiomediastinal silhouette is stable again demonstrating cardiomegaly. The osseous structures are stable. XR/XR chest 1V portable IMPRESSION: No acute process. Stable cardiomegaly - EKG Data EKG attestation: Yes I reviewed and interpreted this EKG. EKG shows normal: intervals, QRS complexes Rate: normal Rhythm: A.Fib, PVC's [place]/QRS: left axis deviation Interpretation: no acute changes TPA Checklist - LKW: 3-4.5 hrs Add. Warnings/Precautions Patient/family understanding: The patient/family members have been counseled and understood the risk, benefit , and alternatives of treatment.
[2017-04-27 12:30] LABS: Basophils % 0.2 %; Eosinophils # 0.1 K/mcL (0.0-0.6); Eosinophils % 1.2 %; Hematocrit 36.4 % (37.5-50.1); Hemoglobin 12.9 g/dL (12.9-16.9); Immature Granulocytes % 0.4 % (0-4); Lymphocytes # 1.5 K/mcL (0.6-4.6); Mean Corpuscular HGB Conc 35.4 g/dL (31.6-35.5); Mean Corpuscular Hemoglobin 31.5 pg (28.0-33.3); Mean Corpuscular Volume 88.8 fL (83.0-100.0); Mean Platelet Volume 10.3 fL (9.4-12.4); Monocytes % 8.8 %; Neutrophils # 8.2 K/mcL (1.6-8.9); Platelet Count 192 K/mcL (140-400); Red Cell Distribution Width 12.6 % (11.5-14.5); Segmented Neutrophils % 75.4 %
[2017-04-27 12:31] LABS: INR 1.1; Prothrombin Time 11.8 Seconds (9.4-12.1)
[2017-04-27 12:33] LABS: Activated Partial Thrombo Time 25.2 Seconds (26.0-36.0)
[2017-04-27 12:40] LABS: Alanine Aminotransferase 19 Units/L (0-55); Albumin 2.8 g/dL (3.5-5.0); Albumin/Globulin Ratio 0.7 (1.1-2.2); Alkaline Phosphatase 76 Units/L (38-126); Aspartate Amino Transferase 15 Units/L (5-34); BUN/Creatinine Ratio 17 (6-26); Bilirubin,Direct 0.3 mg/dL (0.0-0.5); Bilirubin,Indirect 0.6 mg/dL (0.0-1.2); Bilirubin,Total 0.9 mg/dL (0.2-1.2); Blood Urea Nitrogen 25 mg/dL (8-26); Calcium 9.2 mg/dL (8.6-10.8); Carbon Dioxide 24 mEq/L (19-29); Chloride 101 mEq/L (98-109); Ethanol < 10 mg/dL (0-10); Glucose 342 mg/dL (70-99); Osmolality,Calculated 302 (280-300); Potassium 4.5 mEq/L (3.5-4.5); Sodium 137 mEq/L (136-145); Total Protein 6.8 g/dL (6.0-8.3); eGFR For African Americans 55 (> 60); eGFR For Non-African Americans 45 (> 60)
[2017-04-27 12:44] LABS: ABG Base Excess 2.4 mEq/L (-2.0 to 3.0); ABG HCO3 27 mEq/L (21-27); ABG PCO2 41 mmHg (35-45); ABG PH 7.43 pH Units (7.32-7.45); ABG PO2 116 mmHg (85-104); ABG TCO2 28 mEq/L (20-26)
[2017-04-27 12:45] LABS: ABG Oxygen Saturation 99 % (95-98); Blood Gas Liter Flow 10 L/MIN; Blood Gas Modality NRB
[2017-04-27] MEDS ORDERED: Insulin Regular, Human 100 UNIT/ML SQ ONE ×2 (14:22→14:31)
[2017-04-27] MEDS ORDERED: 0.9 % Sodium Chloride 1,000 ML IVC ONE ×2 (14:24→14:31)
[2017-04-27] MEDS ORDERED: Naloxone 0.4 MG/ML INJ IVP PRN (14:31)
[2017-04-27] MEDS: 0.9 % Sodium Chloride 1,000 ML IVC SCH (17:41)
--- NOTE | 2017-04-27 18:17 | Internal Med History&Physical ---
Date of Encounter: 04/27/17 Time of Encounter: 18:15 Assessment and Plan (1) Change in mental status Current visit: Yes Status: Acute there is change in mental status per family . He has hx of old hemorrhagic stroke . CT shows white matter disease and multiple old stroke no apparent metabolic issues noted except for his high blood sugars Unable to get urine once to rule any UTI his WBC is normal range Supportive treatment old According to family they while he was competent he had advised not to use any NG tube feeding . He is DNT CC will provide supportive care only overall poor prognosis Qualifiers: Altered mental status type: unspecified Qualified Code(s): R41.82 - Altered mental status, unspecified (2) CVA (cerebrovascular accident) Current visit: Yes Status: Acute same as above supportive treatment only Qualifiers: CVA mechanism: unspecified Qualified Code(s): I63.9 - Cerebral infarction, unspecified (3) Diabetes mellitus type 2 with complications, uncontrolled Current visit: No Status: Acute sliding scale Qualifiers: Diabetes mellitus fci insulin use: without exterminator termite use Qualified Code(s): E11.8 - Type 2 diabetes mellitus with unspecified complications; E11.65 - Type 2 diabetes mellitus with hyperglycemia Internal Medicine - H&P: HPI Chief complaint: change in mental status Admitted From: Emergency Dept History of present illness: Mr. Lawton is a 82 year old male with significant hx of stroke and CVA in the past with Dm who was noted to have increase in confusion and inability to speak . also noted a facial droop toward left side which was noew for him . He is unable to provide any history .Most of the information was from ED provider and grand daughter . Past Med Surg Social Fam HX - Past Medical History Medical history: arthritis, atrial fibrillation, cancer, CHF, COPD, coronary artery disease, CVA, diabetes, hypertension, other Psychiatric history: no psych history - Past Surgical History Surgical History: cholecystectomy, knee replacement, orthopedic, other, prostatectomy, other - Social History Smoking Status: Never smoker Smokeless Tobacco Status: No Alcohol use: none Drug use: none Internal Medicine - H&P: Meds Allopurinol [Zyloprim] 100 mg PO QAM 06/06/15 [History] Aspirin 81 mg PO QAM 06/06/15 [History] Tamsulosin [Flomax] 0.4 mg PO DAILY #30 capsule 11/14/15 [Rx] Atorvastatin [Lipitor] 40 mg PO HS 09/19/16 [History] Glimepiride [Amaryl] 4 mg PO DAILY 09/19/16 [History] LevETIRAcetam [Keppra] 500 mg PO BID 09/19/16 [History] Metoprolol [Lopressor] 25 mg PO BID 09/19/16 [History] Citalopram [CeleXA] 20 mg PO DAILY 02/03/17 [History] Gabapentin [Neurontin] 100 mg PO TID 02/03/17 [History] risperiDONE [RisperDAL] 1 mg PO DAILY 02/03/17 [History] DULoxetine [Cymbalta] 30 mg PO DAILY 03/08/17 [History] traZODone [TraZODone] 150 mg PO HS 03/08/17 [History] Lisinopril [Zestril] 2.5 mg PO BID #60 tab 03/12/17 [Rx] predniSONE [PredniSONE] 10 mg PO DAILY #10 tab 03/12/17 [Rx] 3 Allergy/AdvReac Type Severity Reaction Status Date / Time Sulfa (Sulfonamide Allergy Rash Verified 06/06/15 17:31 Antibiotics) morphine AdvReac Vomiting Verified 06/06/15 17:31 All Systems PM: A 10-system review of systems was performed and is negative for pertinent findings except as documented above in the HPI. Review of systems: limited ROS as information is from his grand daughter and she is unable to provide any meaning ful history - Constitutional Vitals: Temp Pulse Resp BP Pulse Ox 97.5 F L 57 20 112/72 2 04/27/17 15:42 04/27/17 15:42 04/27/17 15:42 04/27/17 15:42 04/27/17 15:43 General appearance: Absent: mild distress, no acute distress Exam: lying bed , no acute distress no oriented open and grimaces little with painful stimulus facial deviation towards left side - Head Head exam: Present: atraumatic - Eye Eye exam: Present: normal appearance. Absent: scleral icterus, conjuntiva pink Additional comments: unable to do a meaning full examination as doesn't follow commands - Neck Neck exam general surgery: Present: supple. Absent: tenderness, nuchal rigidity - Respiratory Respiratory exam: Absent: chest wall tenderness, decreased breath sounds, respiratory distress, rhonchi, stridor, wheezes, tachypnea Additional comments: decrease breath sounds bases , no wheeze noted - Cardiovascular Cardiovascular exam: Present: RRR, +S1, +S2. Absent: irregular rhythm, JVD, systolic murmur - GI/Abdominal Additional comments: soft non distended BS are psitive questionable pain on palpation especially when done deeply he moves and makes some sounds - Extremities Exam Extremities exam: Absent: pedal edema, tenderness, warm - Neurological Exam Neurological exam: Present: facial droop, speech deficit Additional comments: pt doesn't follow any commands . When raised and dropped his arms he is able to move both arms simialrly legs he is able to keep up and it seems that there is some motor function upper and lower area He has left side facial deviation gag reflex is absent on the left side right side is also decreased Unable to do any cranial examination Internal Med - H&P Results - Labs CBC & Chem 7: 04/27/17 12:08 04/27/17 12:08
[2017-04-27] MEDS: Famotidine 20 MG/2 ML VIAL IVP SCH (20:30)
[2017-04-28] MEDS: 0.9 % Sodium Chloride 1,000 ML IVC SCH ×2 (03:34→13:54)
[2017-04-28] MEDS: *HR* Enoxaparin 30 MG/0.3 ML SYRINGE SQ SCH (06:25)
[2017-04-28] MEDS: Famotidine 20 MG/2 ML VIAL IVP SCH (06:25)
[2017-04-28 10:21] LABS: Bilirubin,Urine Negative (Negative); Blood,Urine Trace-intact (Negative); Clarity,Urine Clear (Clear); Color,Urine Yellow (Yellow); Glucose,Urine (UA) Normal (Normal); Ketones,Urine Negative (Negative); Leukocyte Esterase,Urine Trace (Negative); Nitrite,Urine Negative (Negative); Protein,Urine 30 mg/dL (Neg-Trace); Specific Gravity,Urine >= 1.030 (1.010-1.025); Urobilinogen,Urine Normal (Normal)
[2017-04-28 10:41] LABS: Bacteria,Urine Few per hpf (None-Few); RBC,Urine 0-3 per hpf (0-3); WBC,Urine 0-3 per hpf (0-3)
--- NOTE | 2017-04-28 15:32 | Internal Med Progress Note ---
Date of Encounter: 04/28/17 Time of Encounter: 15:30 - Assessment and plan (1) CVA (cerebrovascular accident) Current Visit: Yes Status: Acute Assessment and plan: Is a possibility of patient has deviated show up yet when they did the scan in the emergency room. But he is very confused and confabulating etc. Qualifiers: CVA mechanism: unspecified Qualified Code(s): I63.9 - Cerebral infarction, unspecified - Time Spent With Patient less than 15 minutes - Subjective Interval history: There is a dilemma right now on disposition. He may have had a small stroke although I am not sure there is a big change. PT OT evaluate him for possible placement. - Constitutional Vitals: Temp Pulse Resp BP Pulse Ox 98.1 F 99 15 118/80 96 04/28/17 11:21 04/28/17 11:21 04/28/17 07:53 04/28/17 11:21 04/28/17 11:21 General appearance: Absent: mild distress, no acute distress - Head Head exam: Present: atraumatic, normal inspection, normocephalic - Neck Neck exam general surgery: Present: supple, trachea midline. Absent: lymphadenopathy - Respiratory Respiratory exam: Present: CTAB. Absent: accessory muscle use, rales, rhonchi, wheezes - Cardiovascular Cardiovascular exam: Present: irregular rhythm, RRR, +S1, +S2. Absent: diastolic murmur, gallop, rubs, systolic murmur Internal Medicine: Result - Labs CBC & Chem 7: 04/27/17 12:08 04/27/17 12:08 Labs: Urine 04/28/17 Range/Units 10:20 Urine Color Yellow (Yellow) Urine Clarity Clear (Clear) Urine pH 6.0 (5.0-8.0) pH Units Ur Specific [place] >= 1.030 H (1.010-1.025) Urine Protein 30 H (Neg-Trace) mg/dL Urine Glucose (UA) Normal (Normal) mg/dL The UA looks okay and the lab is stable - ABG Interpretation ABG results: ABG ABG pH 7.43 pH Units (7.32-7.45) 04/27/17 12:35 ABG pCO2 41 mmHg (35-45) 04/27/17 12:35 ABG pO2 116 mmHg (85-104) H 04/27/17 12:35 ABG O2 Saturation 99 % (95-98) H 04/27/17 12:35 PT/INR, D-dimer PT 11.8 Seconds (9.4-12.1) 04/27/17 12:08 Consult Discharge Plan - Plan Referrals: Kelvin Savage MD [Primary Care Provider] -
--- NOTE | 2017-04-28 17:29 | Electrocardiograph Report ---
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
[2017-04-28] MEDS: Haloperidol Lactate 5 MG/ML VIAL IM PRN (19:42)
[2017-04-29] MEDS: Haloperidol Lactate 5 MG/ML VIAL IM PRN (02:42)
[2017-04-29] MEDS: 0.9 % Sodium Chloride 1,000 ML IVC SCH ×2 (02:42→14:32)
[2017-04-29] MEDS: *HR* Enoxaparin 30 MG/0.3 ML SYRINGE SQ SCH (06:18)
[2017-04-29] MEDS: Famotidine 20 MG/2 ML VIAL IVP SCH (06:18)
--- NOTE | 2017-04-29 13:33 | Internal Med Progress Note ---
Date of Encounter: 04/29/17 Time of Encounter: 13:31 - Assessment and plan (1) CVA (cerebrovascular accident) Current Visit: Yes Status: Acute Assessment and plan: Questionable extension of his CVA Qualifiers: CVA mechanism: unspecified Qualified Code(s): I63.9 - Cerebral infarction, unspecified - Time Spent With Patient less than 15 minutes - Subjective Interval history: There is a dilemma right now on disposition. He may have had a small stroke although I am not sure there is a big change. PT OT evaluate him for possible placement. Awaiting speech to see if he can take a diet because Dr. Mcfarlane found absent of gag reflex - Constitutional Vitals: Temp Pulse Resp BP Pulse Ox 97.8 F 124 16 156/100 93 04/29/17 07:19 04/29/17 07:19 04/29/17 07:19 04/29/17 07:19 04/29/17 07:19 General appearance: Absent: mild distress, no acute distress - Head Head exam: Present: atraumatic, normal inspection, normocephalic - Neck Neck exam general surgery: Present: supple, trachea midline. Absent: lymphadenopathy - Respiratory Respiratory exam: Present: CTAB. Absent: accessory muscle use, rales, rhonchi, wheezes - Cardiovascular Cardiovascular exam: Present: RRR, +S1, +S2. Absent: diastolic murmur, gallop, rubs, systolic murmur Internal Medicine: Result - Labs CBC & Chem 7: 04/27/17 12:08 04/27/17 12:08 Labs: Labs though does not look bad - ABG Interpretation ABG results: ABG ABG pH 7.43 pH Units (7.32-7.45) 04/27/17 12:35 ABG pCO2 41 mmHg (35-45) 04/27/17 12:35 ABG pO2 116 mmHg (85-104) H 04/27/17 12:35 ABG O2 Saturation 99 % (95-98) H 04/27/17 12:35 PT/INR, D-dimer PT 11.8 Seconds (9.4-12.1) 04/27/17 12:08 Consult Discharge Plan - Plan Referrals: Kelvin Savage MD [Primary Care Provider] -
[2017-04-29] MEDS ORDERED: *HR* Digoxin 0.5 MG/2 ML AMPUL IVP ONE (14:15)
[2017-04-29] MEDS: Insulin DETEMIR 100 UNIT/ML X5UNITS SQ SCH (21:31)
[2017-04-30] MEDS: 0.9 % Sodium Chloride 1,000 ML IVC SCH ×2 (00:34→16:59)
[2017-04-30] MEDS: Famotidine 20 MG/2 ML VIAL IVP SCH (06:30)
[2017-04-30] MEDS: *HR* Enoxaparin 30 MG/0.3 ML SYRINGE SQ SCH (06:30)
--- NOTE | 2017-04-30 13:16 | Internal Med Progress Note ---
Date of Encounter: 04/30/17 Time of Encounter: 13:15 - Assessment and plan (1) CVA (cerebrovascular accident) Current Visit: Yes Status: Acute Assessment and plan: Here for CVA possible extension. Very confused although today he did walk some Qualifiers: CVA mechanism: unspecified Qualified Code(s): I63.9 - Cerebral infarction, unspecified - Time Spent With Patient less than 15 minutes - Subjective Interval history: Now the patient is eating and all the paperwork's been [facility] - Constitutional Vitals: Temp Pulse Resp BP Pulse Ox 99.2 F 93 22 160/110 92 04/30/17 07:25 04/30/17 11:02 04/30/17 11:02 04/30/17 11:02 04/30/17 11:02 General appearance: Absent: mild distress, no acute distress - Head Head exam: Present: atraumatic, normal inspection, normocephalic - Neck Neck exam general surgery: Present: supple, trachea midline. Absent: lymphadenopathy - Respiratory Respiratory exam: Present: CTAB. Absent: accessory muscle use, rales, rhonchi, wheezes - Cardiovascular Cardiovascular exam: Present: RRR, +S1, +S2. Absent: diastolic murmur, gallop, rubs, systolic murmur Internal Medicine: Result - Labs CBC & Chem 7: 04/27/17 12:08 04/27/17 12:08 Labs: Lab is okay - ABG Interpretation ABG results: ABG ABG pH 7.43 pH Units (7.32-7.45) 04/27/17 12:35 ABG pCO2 41 mmHg (35-45) 04/27/17 12:35 ABG pO2 116 mmHg (85-104) H 04/27/17 12:35 ABG O2 Saturation 99 % (95-98) H 04/27/17 12:35 PT/INR, D-dimer PT 11.8 Seconds (9.4-12.1) 04/27/17 12:08 Consult Discharge Plan - Plan Referrals: Kelvin Savage MD [Primary Care Provider] -
[2017-04-30] MEDS: Insulin DETEMIR 100 UNIT/ML X5UNITS SQ SCH (17:02)
[2017-04-30] MEDS ORDERED: Insulin Regular, Human 100 UNIT/ML SQ ONE (17:57)
[2017-04-30] MEDS ORDERED: Insulin LISPRO 300 UNITS/3 ML VIAL SQ ONE (18:46)
[2017-05-01 00:53] LABS: Bilirubin,Urine Small (Negative); Blood,Urine Negative (Negative); Clarity,Urine Clear (Clear); Color,Urine Yellow (Yellow); Glucose,Urine (UA) 500 mg/dL (Normal); Ketones,Urine Negative (Negative); Leukocyte Esterase,Urine Negative (Negative); Nitrite,Urine Negative (Negative); PH,Urine 5.5 pH Units (5.0-8.0); Protein,Urine 100 mg/dL (Neg-Trace); Specific Gravity,Urine >= 1.030 (1.010-1.025)
[2017-05-01 01:10] LABS: Bacteria,Urine Moderate per hpf (None-Few); Hyaline Casts,Urine Few per lpf (None-Few); Mucus,Urine Few (Few); RBC,Urine 0-3 per hpf (0-3); Squamous Epithelial Cell,Urine Moderate per lpf (None-Few)
[2017-05-01 05:27] LABS: Basophils % 0.3 %; Eosinophils # 0.1 K/mcL (0.0-0.6); Eosinophils % 0.9 %; Hematocrit 31.6 % (37.5-50.1); Hemoglobin 10.7 g/dL (12.9-16.9); Immature Granulocytes % 0.5 % (0-4); Lymphocytes # 1.7 K/mcL (0.6-4.6); Lymphocytes % 15.5 %; Mean Corpuscular HGB Conc 33.9 g/dL (31.6-35.5); Mean Corpuscular Hemoglobin 30.9 pg (28.0-33.3); Mean Corpuscular Volume 91.3 fL (83.0-100.0); Mean Platelet Volume 10.4 fL (9.4-12.4); Monocytes % 8.8 %; Neutrophils # 8.1 K/mcL (1.6-8.9); Platelet Count 180 K/mcL (140-400); Red Blood Count 3.46 M/mcL (4.19-5.50); Red Cell Distribution Width 13.1 % (11.5-14.5)
[2017-05-01] MEDS: 0.9 % Sodium Chloride 1,000 ML IVC SCH (05:36)
[2017-05-01 05:42] LABS: BUN/Creatinine Ratio 28 (6-26); Blood Urea Nitrogen 30 mg/dL (8-26); Calcium 8.7 mg/dL (8.6-10.8); Carbon Dioxide 24 mEq/L (19-29); Chloride 115 mEq/L (98-109); Glucose 72 mg/dL (70-99); Osmolality,Calculated 311 (280-300); Potassium 3.8 mEq/L (3.5-4.5); Sodium 148 mEq/L (136-145); eGFR For African Americans > 60 (> 60); eGFR For Non-African Americans > 60 (> 60)
[2017-05-01] MEDS: *HR* Enoxaparin 30 MG/0.3 ML SYRINGE SQ SCH (06:05)
--- NOTE | 2017-05-01 08:13 | Electrocardiograph Report ---
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
[2017-05-01] MEDS: Famotidine 20 MG/2 ML VIAL IVP SCH (08:41)
[2017-05-01] MEDS: D5% in Water 1,000 ML IVC SCH (09:45)
--- NOTE | 2017-05-01 14:34 | Internal Med Progress Note ---
Date of Encounter: 05/01/17 Time of Encounter: 14:31 - Assessment and plan (1) CVA (cerebrovascular accident) Current Visit: Yes Status: Acute Assessment and plan: Possible extension of a CVA. Qualifiers: CVA mechanism: unspecified Qualified Code(s): I63.9 - Cerebral infarction, unspecified - Time Spent With Patient less than 15 minutes - Subjective Interval history: Now the patient is eating and all the paperwork's been waiting disposition to the [facility]. All patient today got up and walked a little bit addressed until the shower 8 much improved. Chest x-ray did not show any acute change and I felt that the lab was stable. He does have a high sodium which I had to switch from saline to D5W. Sugars were good this morning but have to follow him closely. - Constitutional Vitals: Temp Pulse Resp BP Pulse Ox 97.6 F 81 16 131/90 99 05/01/17 11:37 05/01/17 11:37 05/01/17 11:37 05/01/17 11:37 05/01/17 11:37 General appearance: Absent: mild distress, no acute distress - Head Head exam: Present: atraumatic, normal inspection, normocephalic - Neck Neck exam general surgery: Present: supple, trachea midline. Absent: lymphadenopathy - Respiratory Respiratory exam: Present: CTAB. Absent: accessory muscle use, rales, rhonchi, wheezes - Cardiovascular Cardiovascular exam: Present: RRR, +S1, +S2. Absent: diastolic murmur, gallop, rubs, systolic murmur - GI/Abdominal GI/Abdominal exam: Present: normal bowel sounds, soft, no peritoneal signs. Absent: distended, tenderness Internal Medicine: Result - Labs CBC & Chem 7: 05/01/17 05:15 05/01/17 05:15 Labs: Short CBC 05/01/17 Range/Units 05:15 WBC 10.9 (4.3-11.1) K/mcL Hgb 10.7 L D (12.9-16.9) g/dL Hct 31.6 L (37.5-50.1) % Plt Count 180 (140-400) K/mcL Neutrophils # 8.1 (1.6-8.9) K/mcL BMP 05/01/17 05:15 Sodium 148 H Potassium 3.8 Chloride 115 H Carbon Dioxide 24 BUN 30 H Creatinine 1.08 Glucose 72 Calcium 8.7 Urine 05/01/17 Range/Units 00:43 Urine Color Yellow (Yellow) Urine Clarity Clear (Clear) Urine pH 5.5 (5.0-8.0) pH Units Ur Specific [place] >= 1.030 H (1.010-1.025) Urine Protein 100 H (Neg-Trace) mg/dL Urine Glucose (UA) 500 H (Normal) mg/dL See previous notes the sodium is high suspicion D5W from saline. And his urine specific gravity is up along with slight increased BUN/creatinine. So we will continue some fluid follow the sugars closely put him on a sliding scale - ABG Interpretation ABG results: ABG ABG pH 7.43 pH Units (7.32-7.45) 04/27/17 12:35 ABG pCO2 41 mmHg (35-45) 04/27/17 12:35 ABG pO2 116 mmHg (85-104) H 04/27/17 12:35 ABG O2 Saturation 99 % (95-98) H 04/27/17 12:35 PT/INR, D-dimer PT 11.8 Seconds (9.4-12.1) 04/27/17 12:08 - Impressions Impressions Chest X-Ray 05/01/17 18:00 IMPRESSION: No acute cardiopulmonary process identified. D/ / Danial Christie MD / Danial Christie MD Interpreting Provider: Danial Christie MD Consult Discharge Plan - Plan Referrals: Kelvin Savage MD [Primary Care Provider] -
[2017-05-01] MEDS ORDERED: D5% in Water 1,000 ML IVC PRN (14:36)
[2017-05-01] MEDS ORDERED: *HR* Dextrose 50 % in Water (Syg) 50 ML SYRINGE IVP PRN (14:36)
[2017-05-01] MEDS ORDERED: Dextrose Gel 15 GM PO PRN ×2 (14:36)
[2017-05-01] MEDS: Insulin LISPRO 300 UNITS/3 ML VIAL SQ SCH ×2 (17:05→21:50)
[2017-05-01] MEDS: Insulin DETEMIR 100 UNIT/ML X5UNITS SQ SCH (21:58)
[2017-05-02] MEDS: D5% in Water 1,000 ML IVC SCH ×3 (06:16→16:30)
[2017-05-02] MEDS: *HR* Enoxaparin 30 MG/0.3 ML SYRINGE SQ SCH (06:19)
[2017-05-02] MEDS: 0.9 % Sodium Chloride 1,000 ML IVC SCH ×2 (07:49→07:50)
[2017-05-02] MEDS: Famotidine 20 MG/2 ML VIAL IVP SCH (10:00)
[2017-05-02] MEDS: Insulin LISPRO 300 UNITS/3 ML VIAL SQ SCH ×4 (10:00→21:54)
[2017-05-02] MEDS: Insulin DETEMIR 100 UNIT/ML X5UNITS SQ SCH (21:54)
[2017-05-03] MEDS: D5% in Water 1,000 ML IVC SCH ×3 (02:32→22:25)
[2017-05-03] MEDS: *HR* Enoxaparin 40 MG/0.4 ML SYRINGE SQ SCH (06:07)
[2017-05-03] MEDS: Insulin LISPRO 300 UNITS/3 ML VIAL SQ SCH ×4 (08:27→22:18)
[2017-05-03] MEDS: Famotidine 20 MG/2 ML VIAL IVP SCH (08:28)
[2017-05-03] MEDS: Insulin DETEMIR 100 UNIT/ML X5UNITS SQ SCH (22:18)
[2017-05-04] MEDS: *HR* Enoxaparin 40 MG/0.4 ML SYRINGE SQ SCH (04:33)
[2017-05-04] MEDS: D5% in Water 1,000 ML IVC SCH (08:15)
[2017-05-04] MEDS: Insulin LISPRO 300 UNITS/3 ML VIAL SQ SCH ×4 (08:16→21:46)
[2017-05-04] MEDS: Famotidine 20 MG/2 ML VIAL IVP SCH (08:17)
--- NOTE | 2017-05-04 13:26 | Internal Med Progress Note ---
Date of Encounter: 05/04/17 Time of Encounter: 13:24 - Assessment and plan (1) CVA (cerebrovascular accident) Current Visit: Yes Status: Acute Assessment and plan: Patient probably had extension of his CVA. Qualifiers: CVA mechanism: unspecified Qualified Code(s): I63.9 - Cerebral infarction, unspecified - Time Spent With Patient less than 15 minutes - Subjective Interval history: Now the patient is eating and all the paperwork's been waiting disposition to the [facility]. Patient was talking better he is clear but occasionally confused. He is walking better and did some standby 50 feet ambulations. This is significant improvement. I will go recheck his Chem-7 - Constitutional Vitals: Temp Pulse Resp BP Pulse Ox 98.7 F 84 16 183/99 94 05/04/17 06:57 05/04/17 10:46 05/04/17 10:46 05/04/17 10:46 05/04/17 10:46 General appearance: Absent: mild distress, no acute distress - Head Head exam: Present: atraumatic, normal inspection, normocephalic - Neck Neck exam general surgery: Present: supple, trachea midline. Absent: lymphadenopathy - Respiratory Respiratory exam: Present: CTAB. Absent: accessory muscle use, rales, rhonchi, wheezes - Cardiovascular Cardiovascular exam: Present: RRR, +S1, +S2. Absent: diastolic murmur, gallop, rubs, systolic murmur - GI/Abdominal GI/Abdominal exam: Present: normal bowel sounds, soft, no peritoneal signs. Absent: distended, tenderness Internal Medicine: Result - Labs CBC & Chem 7: 05/01/17 05:15 05/01/17 05:15 Labs: I have seen the Chem-7 I am going to order another one and check sodium levels - ABG Interpretation ABG results: ABG ABG pH 7.43 pH Units (7.32-7.45) 04/27/17 12:35 ABG pCO2 41 mmHg (35-45) 04/27/17 12:35 ABG pO2 116 mmHg (85-104) H 04/27/17 12:35 ABG O2 Saturation 99 % (95-98) H 04/27/17 12:35 PT/INR, D-dimer PT 11.8 Seconds (9.4-12.1) 04/27/17 12:08 - VTE Documentation of Mechanical Device: Graduated compression elastic hosiery Consult Discharge Plan - Plan Referrals: Kelvin Savage MD [Primary Care Provider] -
[2017-05-04 15:41] LABS: BUN/Creatinine Ratio 19 (6-26); Blood Urea Nitrogen 17 mg/dL (8-26); Calcium 8.8 mg/dL (8.6-10.8); Carbon Dioxide 21 mEq/L (19-29); Chloride 106 mEq/L (98-109); Glucose 114 mg/dL (70-99); Osmolality,Calculated 282 (280-300); Potassium 3.7 mEq/L (3.5-4.5); Sodium 135 mEq/L (136-145); eGFR For African Americans > 60 (> 60); eGFR For Non-African Americans > 60 (> 60)
[2017-05-04] MEDS: Insulin DETEMIR 100 UNIT/ML X5UNITS SQ SCH (21:51)
[2017-05-05] MEDS: *HR* Enoxaparin 40 MG/0.4 ML SYRINGE SQ SCH (06:34)
[2017-05-05] MEDS: Insulin LISPRO 300 UNITS/3 ML VIAL SQ SCH ×4 (07:35→21:56)
[2017-05-05] MEDS: Famotidine 20 MG/2 ML VIAL IVP SCH (08:31)
--- NOTE | 2017-05-05 12:37 | Internal Med Progress Note ---
Date of Encounter: 05/02/17 Time of Encounter: 09:00 - Assessment and plan (1) Altered mental status Current Visit: Yes Status: Acute Assessment and plan: Persists, electrolytic imbalance is probably not the cause. Qualifiers: Altered mental status type: unspecified Qualified Code(s): R41.82 - Altered mental status, unspecified (2) Acute renal failure Current Visit: No Status: Acute Assessment and plan: Monitoring function. Qualifiers: Acute renal failure type: unspecified Qualified Code(s): N17.9 - Acute kidney failure, unspecified (3) Abdominal tenderness Current Visit: No Status: Acute Assessment and plan: No findings, today. Qualifiers: Abdominal location: unspecified location Presence of rebound: not specified Qualified Code(s): R10.819 - Abdominal tenderness, unspecified site - Subjective Interval history: NOTE: This Note is a LATE ENTRY due to EHR access issues. No complaints. Obviously confused. Responses therefore invalid but denies acute or recent problems. No pain, nausea, dyspnea, cough, chest pain, palpitations, abdominal pain, constipation or diarrhea, headache, fever chills, sweats, or other no complaints. Bowels and bladder with normal function. - Constitutional Vitals: Temp Pulse Resp BP Pulse Ox 97.6 F 84 16 184/97 95 05/05/17 06:59 05/05/17 06:59 05/05/17 06:59 05/05/17 06:59 05/05/17 06:59 General appearance: Present: A&O X 1, no acute distress, obese. Absent: mild distress, answers questions appropriately - Head Head exam: Present: atraumatic, normocephalic - Eye Eye exam: Present: PERRL, conjuntiva pink, sclera anicteric Pupils: Present: PERRL - Neck Neck exam general surgery: Present: supple, trachea midline. Absent: lymphadenopathy, thyromegaly Additional comments: No bruits heard. - Respiratory Respiratory exam: Present: CTAB, rales. Absent: accessory muscle use, rhonchi, wheezes Additional comments: Rales are bibasilar which partially clear with cough, sound dry and therefore atelectatic. - Cardiovascular Cardiovascular exam: Present: RRR, systolic murmur. Absent: diastolic murmur Additional comments: Soft systolic murmur at base, only. - GI/Abdominal GI/Abdominal exam: Present: normal bowel sounds, soft. Absent: distended, tenderness - Extremities Exam Extremities exam: Present: normal capillary refill, normal inspection, warm. Absent: calf tenderness, cyanotic, mottling, pedal edema - Neurological Exam Neurological exam: Present: CN II-XII intact, no focal deficits, facial droop, speech deficit Additional comments: Obiously confused (which nursing states is his baseline). Internal Medicine: Result - Labs CBC & Chem 7: 05/01/17 05:15 05/04/17 15:18 Labs: BMP 05/04/17 15:18 Sodium 135 L Potassium 3.7 Chloride 106 Carbon Dioxide 21 BUN 17 Creatinine 0.91 Glucose 114 H Calcium 8.8 - ABG Interpretation ABG results: ABG ABG pH 7.43 pH Units (7.32-7.45) 04/27/17 12:35 ABG pCO2 41 mmHg (35-45) 04/27/17 12:35 ABG pO2 116 mmHg (85-104) H 04/27/17 12:35 ABG O2 Saturation 99 % (95-98) H 04/27/17 12:35 PT/INR, D-dimer PT 11.8 Seconds (9.4-12.1) 04/27/17 12:08 - VTE Documentation of Mechanical Device: Graduated compression elastic hosiery Consult Discharge Plan - Plan Referrals: Kelvin Savage MD [Primary Care Provider] -
--- NOTE | 2017-05-05 12:49 | Internal Med Progress Note ---
Date of Encounter: 05/03/17 Time of Encounter: 15:25 - Assessment and plan (1) Altered mental status Current Visit: Yes Status: Acute Qualifiers: Altered mental status type: unspecified Qualified Code(s): R41.82 - Altered mental status, unspecified (2) Acute renal failure Current Visit: No Status: Acute Qualifiers: Acute renal failure type: unspecified Qualified Code(s): N17.9 - Acute kidney failure, unspecified (3) Abdominal tenderness Current Visit: No Status: Acute Qualifiers: Abdominal location: unspecified location Presence of rebound: not specified Qualified Code(s): R10.819 - Abdominal tenderness, unspecified site - Subjective Interval history: NOTE: This Note is a LATE ENTRY due to EHR access issues. No complaints. Still confused. Pleasantly confabulates but admits he doesn't know what's going on. Denies problems. Remains incontinent. No pain, nausea, dyspnea, cough, chest pain, palpitations, abdominal pain, constipation or diarrhea, headache, fever chills, sweats, or other no complaints. Perbhim, wowels and bladder with normal function. - Constitutional Vitals: Temp Pulse Resp BP Pulse Ox 97.6 F 84 16 184/97 95 05/05/17 06:59 05/05/17 06:59 05/05/17 06:59 05/05/17 06:59 05/05/17 06:59 General appearance: Present: A&O X 1, disheveled, no acute distress, obese. Absent: answers questions appropriately - Head Head exam: Present: atraumatic, normocephalic - Eye Eye exam: Present: PERRL, conjuntiva pink, sclera anicteric Pupils: Present: PERRL - Neck Neck exam general surgery: Present: full ROM, supple, trachea midline. Absent: thyromegaly - Respiratory Respiratory exam: Present: CTAB. Absent: accessory muscle use, rales, rhonchi, wheezes Additional comments: Rales have nicely cleared vs. yesterday. - Cardiovascular Cardiovascular exam: Present: RRR - GI/Abdominal GI/Abdominal exam: Present: normal bowel sounds, soft, no peritoneal signs. Absent: distended, tenderness Additional comments: Obese. - Extremities Exam Extremities exam: Present: normal capillary refill, warm. Absent: calf tenderness, cyanotic, mottling, pedal edema Internal Medicine: Result - Labs CBC & Chem 7: 05/01/17 05:15 05/04/17 15:18 Labs: BMP 05/04/17 15:18 Sodium 135 L Potassium 3.7 Chloride 106 Carbon Dioxide 21 BUN 17 Creatinine 0.91 Glucose 114 H Calcium 8.8 - ABG Interpretation ABG results: ABG ABG pH 7.43 pH Units (7.32-7.45) 04/27/17 12:35 ABG pCO2 41 mmHg (35-45) 04/27/17 12:35 ABG pO2 116 mmHg (85-104) H 04/27/17 12:35 ABG O2 Saturation 99 % (95-98) H 04/27/17 12:35 PT/INR, D-dimer PT 11.8 Seconds (9.4-12.1) 04/27/17 12:08 - VTE Documentation of Mechanical Device: Graduated compression elastic hosiery Consult Discharge Plan - Plan Referrals: Kelvin Savage MD [Primary Care Provider] -
--- NOTE | 2017-05-05 13:36 | Internal Med Progress Note ---
Date of Encounter: 05/05/17 Time of Encounter: 13:33 - Assessment and plan (1) CVA (cerebrovascular accident) Current Visit: Yes Status: Acute Assessment and plan: Patient may have had a small extension or ischemic episode because he was very confused and uncooperative. He is much improved now Qualifiers: CVA mechanism: unspecified Qualified Code(s): I63.9 - Cerebral infarction, unspecified - Time Spent With Patient less than 15 minutes - Subjective Interval history: Continuing may progress patient's head is cleared up to some extent and his behavior is much more cooperative - Constitutional Vitals: Temp Pulse Resp BP Pulse Ox 97.6 F 84 16 184/97 95 05/05/17 06:59 05/05/17 06:59 05/05/17 06:59 05/05/17 06:59 05/05/17 06:59 General appearance: Present: A&O X 1, disheveled, no acute distress, obese. Absent: answers questions appropriately - Head Head exam: Present: atraumatic, normocephalic - Neck Neck exam general surgery: Present: supple, trachea midline. Absent: lymphadenopathy - Respiratory Respiratory exam: Present: CTAB. Absent: accessory muscle use, rales, rhonchi, wheezes - Cardiovascular Cardiovascular exam: Present: RRR, +S1, +S2. Absent: diastolic murmur, gallop, rubs, systolic murmur - GI/Abdominal GI/Abdominal exam: Present: normal bowel sounds, soft, no peritoneal signs. Absent: distended, tenderness Internal Medicine: Result - Labs CBC & Chem 7: 05/01/17 05:15 05/04/17 15:18 Labs: BMP 05/04/17 15:18 Sodium 135 L Potassium 3.7 Chloride 106 Carbon Dioxide 21 BUN 17 Creatinine 0.91 Glucose 114 H Calcium 8.8 Lab is stable - ABG Interpretation ABG results: ABG ABG pH 7.43 pH Units (7.32-7.45) 04/27/17 12:35 ABG pCO2 41 mmHg (35-45) 04/27/17 12:35 ABG pO2 116 mmHg (85-104) H 04/27/17 12:35 ABG O2 Saturation 99 % (95-98) H 04/27/17 12:35 PT/INR, D-dimer PT 11.8 Seconds (9.4-12.1) 04/27/17 12:08 - VTE Documentation of Mechanical Device: Graduated compression elastic hosiery Consult Discharge Plan - Plan Referrals: Kelvin Savage MD [Primary Care Provider] -
[2017-05-05] MEDS: Insulin DETEMIR 100 UNIT/ML X5UNITS SQ SCH (21:56)
[2017-05-06] MEDS: *HR* Enoxaparin 40 MG/0.4 ML SYRINGE SQ SCH (06:18)
[2017-05-06 07:55] VITALS: BP 167/88
[2017-05-06] MEDS: Insulin LISPRO 300 UNITS/3 ML VIAL SQ SCH ×2 (08:01→12:52)
[2017-05-06] MEDS: Famotidine 20 MG/2 ML VIAL IVP SCH (08:02)
--- NOTE | 2017-05-06 13:12 | Discharge Summary ---
Date of Encounter: 05/06/17 Time of Encounter: 13:10 - Discharge Diagnosis (1) CVA (cerebrovascular accident) Priority: Primary Status: Acute Qualifiers: CVA mechanism: unspecified Qualified Code(s): I63.9 - Cerebral infarction, unspecified - Discharge Medications Home Medications: Allopurinol [Zyloprim] 100 mg PO QAM 06/06/15 [History] Aspirin 81 mg PO QAM 06/06/15 [History] Tamsulosin [Flomax] 0.4 mg PO DAILY #30 capsule 06/09/15 [Rx] Atorvastatin [Lipitor] 40 mg PO HS 09/19/16 [History] Glimepiride [Amaryl] 4 mg PO DAILY 09/19/16 [History] LevETIRAcetam [Keppra] 500 mg PO BID 09/19/16 [History] Metoprolol [Lopressor] 25 mg PO BID 09/19/16 [History] Citalopram [CeleXA] 20 mg PO DAILY 02/03/17 [History] Gabapentin [Neurontin] 100 mg PO TID 02/03/17 [History] risperiDONE [RisperDAL] 2 mg PO HS 02/03/17 [History] DULoxetine [Cymbalta] 30 mg PO DAILY 03/08/17 [History] traZODone [TraZODone] 150 mg PO HS 03/08/17 [History] Lisinopril [Zestril] 2.5 mg PO BID #60 tab 03/12/17 [Rx] predniSONE [PredniSONE] 10 mg PO DAILY #10 tab 03/12/17 [Rx] Allergies/Adverse Reactions: 3 Allergy/AdvReac Type Severity Reaction Status Date / Time Sulfa (Sulfonamide Allergy Rash Verified 06/06/15 17:31 Antibiotics) morphine AdvReac Vomiting Verified 06/06/15 17:31 Date of admission: 04/27/17 14:54 Primary care physician: Kelvin Savage MD Consults: 04/28/17 15:33 Consult to Physical Therapy [CONS] Routine Comment: Evaluate, develop and implement POC Reason for Consult: CVA? 04/29/17 10:38 Consult to Occupational Therapy [CONS] Routine Comment: Evaluate, develop and implement POC Reason for Consult: new cva 04/29/17 10:45 Consult to Speech Therapy [CONS] Routine Comment: Evaluate, develop and implement POC Reason for Consult: npo order possible new cva Call Completed: Yes Discharging clinician: Kali Ledesma Anticipated date of discharge: 05/06/17 - Patient Status Disposition: Transfer SNF Functional capacity at discharge: uses cane/walker Overall status at discharge: patient is not back to baseline - Discharge Instructions Follow Up With: Kelvin Savage MD [Primary Care Provider] - - Diet and Activity Activity: ambulate only with your walker Diet: diabetic diet Interval History: Patient was admitted from the emergency room for altered mental status. He still confused but it is significantly improved now he stressed he is up walking using a walker she is participating and is eating now. Hospital course: Mr. Lawton is a 82 year old male Ready go to [facility]. He would be very difficult to take care of at home. His needs are still mckeon - Time Spent with Patient Total time spent providing and/or coordinating discharge services: Less than 30 minutes - Constitutional Vitals: Temp Pulse Resp BP Pulse Ox 97.9 F 94 18 167/88 95 05/06/17 07:54 05/06/17 07:54 05/06/17 07:54 05/06/17 07:54 05/06/17 07:54 General appearance: Present: A&O X 1, disheveled, no acute distress, obese. Absent: answers questions appropriately - Head Head exam: Present: atraumatic, normal inspection, normocephalic - Neck Neck exam general surgery: Present: supple, trachea midline. Absent: lymphadenopathy - Respiratory Respiratory exam: Present: CTAB. Absent: accessory muscle use, rales, rhonchi, wheezes - Cardiovascular Cardiovascular exam: Present: RRR, +S1, +S2. Absent: diastolic murmur, gallop, rubs, systolic murmur - VTE Documentation of Mechanical Device: Graduated compression elastic hosiery
--- NOTE | 2017-05-06 13:16 | Physician Discharge Referral ---
[facility] [place] [facility] Transfer To: [facility] Provider in Charge after Transfer: PCP Institutional Level of Care: Skilled - Diagnosis (1) CVA (cerebrovascular accident) Priority: Primary Status: Acute Prognosis: Poor Aware of Diagnosis: Family Aware of Prognosis: Family - Transfer Medications Home Medications: Allopurinol [Zyloprim] 100 mg PO QAM 06/06/15 [History] Aspirin 81 mg PO QAM 06/06/15 [History] Tamsulosin [Flomax] 0.4 mg PO DAILY #30 capsule 06/09/15 [Rx] Atorvastatin [Lipitor] 40 mg PO HS 09/19/16 [History] Glimepiride [Amaryl] 4 mg PO DAILY 09/19/16 [History] LevETIRAcetam [Keppra] 500 mg PO BID 09/19/16 [History] Metoprolol [Lopressor] 25 mg PO BID 09/19/16 [History] Citalopram [CeleXA] 20 mg PO DAILY 02/03/17 [History] Gabapentin [Neurontin] 100 mg PO TID 02/03/17 [History] risperiDONE [RisperDAL] 2 mg PO HS 02/03/17 [History] DULoxetine [Cymbalta] 30 mg PO DAILY 03/08/17 [History] traZODone [TraZODone] 150 mg PO HS 03/08/17 [History] Lisinopril [Zestril] 2.5 mg PO BID #60 tab 03/12/17 [Rx] predniSONE [PredniSONE] 10 mg PO DAILY #10 tab 03/12/17 [Rx] Allergies/Adverse Reactions: 3 Allergy/AdvReac Type Severity Reaction Status Date / Time Sulfa (Sulfonamide Allergy Rash Verified 06/06/15 17:31 Antibiotics) morphine AdvReac Vomiting Verified 06/06/15 17:31 - Respiratory Orders Smoking Cessation: Smoking cessation has been advised. For more information, call the [place] Tobacco Quit Line at 6-585-CKWG-NOW. - Mobility Orders Ambulate - Rehabiliation Orders Rehab Potential: Poor Rehab Orders: Evaluation for Physical Therapy - Treatments Skin tear care topically daily PRN per policy, May check for fecal impaction rectally daily PRN, Fleet enema rectally every other day PRN cleansing purposes - Diet Orders No Concentrated Sweets CERTIFICATION: I certify that the transfer of the above named patient to an [facility] [place] Facility is necessary for the continuing treatment of the diagnosis listed. The above information is true and accurate reflection of patient's current condition. Confidential - Redisclosure prohibited without a patient's written consent.
[2017-05-06] MEDS ORDERED: FLUARIX QUAD 2017-18 36MOS UP/PF 0.5 ML SYRINGE IM ONE (13:33)
== END 2017-05-06 15:30 ==
LOC: EMEROOGRE 11:55 → INPGRE 11:55
PROVIDERS: ADMIT Internal Medicine; ATTEND Internal Medicine